=== PATIENT | female | born 1980 | race Caucasian/White ===

== ENCOUNTER 2017-01-15 11:59 | Emergency (ER) | payer BC ==
--- NOTE | 2017-01-15 12:19 | ER Document Report ---
ED Medical Screen (RME) - General Chief Complaint: Abdominal Cramping Stated Complaint: DIARRHEA CRAMPS BLOODY STOOL Time Seen by Provider: 01/15/17 12:18 Notes: Patient states she woke suddenly at 2:30 in the morning with severe abdominal cramping and diarrhea. She states over the last hour the stool is now pure blood whenever it comes out. She states the stool is still loose and liquid. She states the cramping is better but not gone. She denies any history of similar problems. She has never had any abdominal surgeries other than a fallopian tube procedure. She denies any significant chronic medical problems. TRAVEL OUTSIDE OF THE [place] IN LAST 30 DAYS: No - Related Data Allergies/Adverse Reactions: codeine [Codeine] Allergy (Severe, Verified 01/15/17 12:04) rash/hives hydroxyzine [Hydroxyzine] Allergy (Severe, Verified 01/15/17 12:04) Seizures, Hives Tetanus Vaccines and Toxoid [Tetanus] Allergy (Severe, Verified 01/15/17 12:04) Seizures acetaminophen [From Vicodin] Allergy (Intermediate, Verified 01/15/17 12:04) Hives hydrocodone bitartrate [From Vicodin] Allergy (Intermediate, Verified 01/15/17 12:04) Hives Past Medical History - Past Medical History Cardiac Medical History: Denies: Hx Coronary Artery Disease, Hx Heart Attack, Hx Hypertension Pulmonary Medical History: Denies: Hx Asthma, Hx Bronchitis, Hx COPD, Hx Pneumonia Neurological Medical History: Reports: Hx Seizures - Medication related. Denies : Hx Cerebrovascular Accident Musculoskeltal Medical History: Denies Hx Arthritis - Immunizations Hx Diphtheria, Pertussis, Tetanus Vaccination: No Physical Exam - Vital signs Vitals: Temp Pulse Resp BP Pulse Ox 98.4 F 92 14 131/88 H 100 01/15/17 12:04 01/15/17 12:04 01/15/17 12:04 01/15/17 12:04 01/15/17 12:04 Course - Vital Signs Vital signs: Temp Pulse Resp BP Pulse Ox 98.4 F 92 14 131/88 H 100 01/15/17 12:04 01/15/17 12:04 01/15/17 12:04 01/15/17 12:04 01/15/17 12:04
[2017-01-15 12:54] LABS: ABSOLUTE EOSINOPHILS # (AUTO) 0.1 10^3/uL (0.0-0.6); ABSOLUTE LYMPHOCYTES (AUTO) 1.9 10^3/uL (0.5-4.7); ABSOLUTE MONOCYTES (AUTO) 0.4 10^3/uL (0.1-1.4); BASOPHILS % (AUTO) 0.8 % (0-2); EOSINOPHILS % (AUTO) 1.2 % (0-6); HEMATOCRIT 39.3 % (36.0-47.0); HEMOGLOBIN 13.6 g/dL (12.0-15.5); HGB HCT DIFFERENCE 1.5; LYMPHOCYTES % (AUTO) 42.3 % (13-45); MEAN CORPUSCULAR HGB CONC 34.6 g/dL (32.0-36.0); MEAN CORPUSCULAR VOLUME 87 fl (80-97); MONOCYTES % (AUTO) 9.6 % (3-13); RED BLOOD COUNT 4.54 10^6/uL (3.72-5.28); SEGMENTED NEUTROPHILS % (AUTO) 46.1 % (42-78); WHITE BLOOD COUNT 4.4 10^3/uL (4.0-10.5)
[2017-01-15 12:56] LABS: APPEARANCE,URINE CLEAR; BILIRUBIN,URINE NEGATIVE (NEGATIVE); GLUCOSE, URINE NEGATIVE (NEGATIVE); KETONES,URINE NEGATIVE (NEGATIVE); LEUKOCYTE ESTERASE,URINE NEGATIVE (NEGATIVE); NITRITE,URINE NEGATIVE (NEGATIVE); PROTEIN,URINE NEGATIVE (NEGATIVE); URINE SPECIFIC GRAVITY 1.004; UROBILINOGEN,URINE NEGATIVE mg/dL (<2.0)
[2017-01-15 13:17] LABS: ALANINE AMINOTRANSFERASE 36 U/L (9-52); ALBUMIN 4.6 g/dL (3.5-5.0); ALKALINE PHOSPHATASE 64 U/L (38-126); ANION GAP 14 (5-19); ASPARTATE AMINO TRANSFERASE 25 U/L (14-36); BILIRUBIN,DIRECT 0.3 mg/dL (0.0-0.4); BILIRUBIN,TOTAL 0.7 mg/dL (0.2-1.3); BLOOD UREA NITROGEN 11 mg/dL (7-20); CALCIUM 9.8 mg/dL (8.4-10.2); CARBON DIOXIDE 27 mmol/L (22-30); CHLORIDE 104 mmol/L (98-107); CREATININE RESULT 0.78 mg/dL (0.52-1.25); GLUCOSE 98 mg/dL (75-110); LIPASE 90.9 U/L (23-300); POTASSIUM 3.7 mmol/L (3.6-5.0); SODIUM 144.7 mmol/L (137-145); TOTAL PROTEIN 7.9 g/dL (6.3-8.2)
--- NOTE | 2017-01-15 14:34 | ER Document Report ---
ED GI/ - General Chief Complaint: Abdominal Cramping Stated Complaint: DIARRHEA CRAMPS BLOODY STOOL Time Seen by Provider: 01/15/17 12:18 Notes: The patient is a 36-year-old female who presents with of lower abdominal cramping, nausea, vomiting and diarrhea. Initially the diarrhea was watery, but now it is bloody. She thinks she may have eaten undercooked chicken last night. She denies a history of IBD, recent travel, fevers, hematemesis, lightheadedness, urinary symptoms or flank pain. TRAVEL OUTSIDE OF THE [place] IN LAST 30 DAYS: No - Related Data Allergies/Adverse Reactions: codeine [Codeine] Allergy (Severe, Verified 01/15/17 12:04) rash/hives hydroxyzine [Hydroxyzine] Allergy (Severe, Verified 01/15/17 12:04) Seizures, Hives Tetanus Vaccines and Toxoid [Tetanus] Allergy (Severe, Verified 01/15/17 12:04) Seizures acetaminophen [From Vicodin] Allergy (Intermediate, Verified 01/15/17 12:04) Hives hydrocodone bitartrate [From Vicodin] Allergy (Intermediate, Verified 01/15/17 12:04) Hives Past Medical History - General Information source: Patient - Social History Smoking Status: Never Smoker Chew tobacco use (# tins/day): No Frequency of alcohol use: None Drug Abuse: None Family History: Reviewed & Not Pertinent Patient has suicidal ideation: No Patient has homicidal ideation: No - Past Medical History Cardiac Medical History: Denies: Hx Coronary Artery Disease, Hx Heart Attack, Hx Hypertension Pulmonary Medical History: Denies: Hx Asthma, Hx Bronchitis, Hx COPD, Hx Pneumonia Neurological Medical History: Reports: Hx Seizures - Medication related. Denies : Hx Cerebrovascular Accident Renal/ Medical History: Denies: Hx Peritoneal Dialysis Musculoskeltal Medical History: Denies Hx Arthritis Past Surgical History: Reports: Hx Oral Surgery - wisdom teeth - Immunizations Hx Diphtheria, Pertussis, Tetanus Vaccination: No Review of Systems - Review of Systems Notes: REVIEW OF SYSTEMS: CONSTITUTIONAL: -fevers, -chills EENT: -eye pain, -difficulty swallowing, -nasal congestion CARDIOVASCULAR:-chest pain, -syncope. RESPIRATORY: -cough, -SOB GASTROINTESTINAL: +abdominal cramping, +nausea, +vomiting, +bloody diarrhea GENITOURINARY: -dysuria, -hematuria MUSCULOSKELETAL: -back pain, -neck pain SKIN: -rash or skin lesions. HEMATOLOGIC: -easy bruising or bleeding. LYMPHATIC: -swollen, enlarged glands. NEUROLOGICAL: -altered mental status or loss of consciousness, -headache, - neurologic symptoms PSYCHIATRIC: -anxiety, -depression. ALL OTHER SYSTEMS REVIEWED AND NEGATIVE. Physical Exam - Vital signs Vitals: Temp Pulse Resp BP Pulse Ox 98.4 F 92 14 131/88 H 100 01/15/17 12:04 01/15/17 12:04 01/15/17 12:04 01/15/17 12:04 01/15/17 12:04 - Notes Notes: PHYSICAL EXAMINATION: GENERAL: Well-appearing, well-nourished and in no acute distress. HEAD: Atraumatic, normocephalic. EYES: Pupils equal round and reactive to light, extraocular movements intact, sclera anicteric, conjunctiva are normal. ENT: nares patent, oropharynx clear without exudates. Moist mucous membranes. NECK: Normal range of motion, supple without lymphadenopathy LUNGS: Breath sounds clear to auscultation bilaterally and equal. No wheezes rales or rhonchi. HEART: Regular rate and rhythm without murmurs ABDOMEN: Soft, nontender, normoactive bowel sounds. No guarding, no rebound. No masses appreciated. EXTREMITIES: Normal range of motion, no pitting or edema. No cyanosis. NEUROLOGICAL: Cranial nerves grossly intact. Normal speech, normal gait. Normal sensory and motor exams. PSYCH: Normal mood, normal affect. SKIN: Warm, Dry, normal turgor, no rashes or lesions noted. Course - Re-evaluation Re-evalutation: Patient appears well and she has no abdominal tenderness. Her hemoglobin is normal and vital signs are normal. She thinks she had undercooked chicken last night. Stool culture sent and will begin Cipro for possible foodborne cause for her diarrhea. There is no history of IBD. Explained that if she continues to have the symptoms to follow-up with GI for a colonoscopy. Given strict return precautions and she understands. - Vital Signs Vital signs: Temp Pulse Resp BP Pulse Ox 97.4 F 81 14 109/69 99 01/15/17 15:11 01/15/17 15:11 01/15/17 12:04 01/15/17 15:11 01/15/17 15:11 - Laboratory Result Diagrams: 01/15/17 12:50 01/15/17 12:50 Discharge - Discharge Clinical Impression: Bloody diarrhea Condition: Stable Disposition: HOME, SELF-CARE Additional Instructions: Take the full course of antibiotics as prescribed and stay hydrated by drinking plenty of fluids. If your symptoms worsen or you begin to feel lightheaded or dizzy, return immediately to the emergency room. Follow-up with the GI doctor for further evaluation and treatment. ABDOMINAL PAIN: There are many causes of abdominal pain. Pain can mean a serious problem requiring surgery (such as appendicitis). It can also be an innocent problem that goes away on its own (such as a viral infection). Often, time must pass to determine the cause of pain. The physician does not feel that hospitalization is necessary, at present. Things may change within the next 24 hours. Call the doctor or come back for re- examination if any problems occur, such as: (1) Pain that becomes more severe, steady, or becomes concentrated in one specific area. Also, pain that is more severe with movement or coughing. (2) Vomiting that persists or becomes more frequent. (3) Blood in the vomitus, urine, or bowel movements. Blood in the stool may have a tarry or black appearance. (4) Shaking chills or fever greater than 100 degrees F. (5) The abdomen becomes more distended or swollen. (6) Bowel movements cease. (7) Failure to improve as expected. COLITIS, NONSPECIFIC: Colitis is an inflammatory disease of the large intestine which affects the lining of the bowel. The cause is uncertain, though it is often caused by an infection. In some cases, the symptoms resolve and can return again in the future. Colitis is characterized by abdominal pain, often nausea and vomiting, and either diarrhea or difficulty with bowel movements. Sometimes blood will be present in the bowel movements. Fever is often present as well. Milder cases of colitis can be managed as an outpatient with medications for nausea and vomiting and pain, oral fluid therapy, and perhaps antibiotics, if a bacterial origin is suspected. Antidiarrhea medicine should usually be avoided in colitis. If you have increasing abdominal pain, repeated vomiting, fever, rectal bleeding, or worsening diarrhea, you should return for re-evaluation. ANTIBIOTIC THERAPY: You have been given an antibiotic prescription. It's important that you take all the medication, unless instructed otherwise by your physician. Failure to complete the entire course can result in relapse of your condition. Common side effects of antibiotics include nausea, intestinal cramping, or diarrhea. Women may develop vaginal yeast infections, and babies can get yeast (thrush) in the mouth following the use of antibiotics. Contact your physician if you develop significant side effects from this medication. Allergy to this antibiotic can result in hives, wheezing, faintness, or itching. If symptoms of allergy occur, stop the medication and call the doctor. CIPROFLOXACIN: You have been given an antibacterial agent, ciprofloxacin (Cipro). This medicine is not related to the penicillins, sulfas, cephalosporins, or tetracyclines. It is often given to patients who are allergic to these drugs. It has been chosen for you either because other drugs are not appropriate, or because of the nature of your problem. Cipro should not be taken with antacids, as these can decrease its effectiveness. It can be taken without regard to meals. CIPRO SHOULD NOT BE TAKEN BY CHILDREN, NURSING WOMEN, OR WOMEN. Although Cipro is usually well-tolerated, common side effects can include nausea and diarrhea. Contact your doctor if you experience any unusual symptoms while on this medication, such as joint pain or swelling, shortness of breath, wheezing, faintness, or hives. FOLLOW-UP CARE: If you have been referred to a physician for follow-up care, call the physician s office for an appointment as you were instructed or within the next two days. If you experience worsening or a significant change in your symptoms, notify the physician immediately or return to the Emergency Department at any time for re-evaluation. Prescriptions: Ciprofloxacin HCl [Cipro 500 mg Tablet] 500 mg PO BID #10 tablet Forms: Return to School, Return to Work Referrals: SHY ALBARRAN MD [ACTIVE STAFF] - Follow up as needed
[2017-01-15 15:12] VITALS: BP 109/69
== END 2017-01-15 15:12 | disposition home or self-care (01) ==
LOC: ER 11:59
DX: K92.1 Melena (principal); R19.7 Diarrhea, unspecified; R10.30 Lower abdominal pain, unspecified; R11.2 Nausea with vomiting, unspecified; Z88.5 Allergy status to narcotic agent; Z88.8 Allergy status to other drugs, medicaments and biological substances; Z88.7 Allergy status to serum and vaccine
CPT/HCPCS: 36415; 80053; 81001; 81025; 82272; 83690; 85025; 87045; 87205; 99284

== ENCOUNTER 2018-01-26 05:10 | Inpatient (IN) | payer BC ==
[2018-01-26] MEDS ORDERED: NORMAL SALINE 1000 ML 1,000 ML IV ONE ×4 (06:16→11:13)
[2018-01-26] MEDS ORDERED: ONDANSETRON HCL INJ/PF 4 MG/2 ML SDV IV ONE (06:21)
[2018-01-26] MEDS ORDERED: KETOROLAC TROMETHAMINE INJ/PF 30 MG/1 ML SDV IV ONE (06:22)
[2018-01-26 06:28] LABS: APPEARANCE,URINE CLOUDY; BILIRUBIN,URINE NEGATIVE (NEGATIVE); COLOR,URINE AMBER; GLUCOSE, URINE NEGATIVE (NEGATIVE); KETONES,URINE 20 mg/dL (NEGATIVE); LEUKOCYTE ESTERASE,URINE TRACE (NEGATIVE); NITRITE,URINE NEGATIVE (NEGATIVE); PROTEIN,URINE 100 mg/dL (NEGATIVE); URINE SPECIFIC GRAVITY 1.023; UROBILINOGEN,URINE NEGATIVE mg/dL (<2.0)
[2018-01-26 06:42] LABS: ALANINE AMINOTRANSFERASE 17 U/L (9-52); ALKALINE PHOSPHATASE 71 U/L (38-126); ANION GAP 16 (5-19); ASPARTATE AMINO TRANSFERASE 19 U/L (14-36); BILIRUBIN,DIRECT 0.8 mg/dL (0.0-0.4); BILIRUBIN,TOTAL 1.8 mg/dL (0.2-1.3); BLOOD UREA NITROGEN 13 mg/dL (7-20); CALCIUM 9.3 mg/dL (8.4-10.2); CARBON DIOXIDE 19 mmol/L (22-30); CHLORIDE 103 mmol/L (98-107); GLUCOSE 124 mg/dL (75-110); LIPASE 39.5 U/L (23-300); POTASSIUM 4.2 mmol/L (3.6-5.0); TOTAL PROTEIN 7.3 g/dL (6.3-8.2)
[2018-01-26 06:47] LABS: ABSOLUTE LYMPHOCYTES (AUTO) 1.3 10^3/uL (0.5-4.7); ABSOLUTE MONOCYTES (AUTO) 1.2 10^3/uL (0.1-1.4); ABSOLUTE NEUT (AUTO) 3.6 10^3/uL (1.7-8.2); BASOPHILS % (AUTO) 0.3 % (0-2); EOSINOPHILS % (AUTO) 0.6 % (0-6); HEMATOCRIT 38.8 % (36.0-47.0); HEMOGLOBIN 13.7 g/dL (12.0-15.5); LYMPHOCYTES % (AUTO) 20.9 % (13-45); MEAN CORPUSCULAR HGB CONC 35.2 g/dL (32.0-36.0); MEAN CORPUSCULAR VOLUME 85 fl (80-97); MONOCYTES % (AUTO) 19.3 % (3-13); PLATELET COUNT 334 10^3/uL (150-450); RED BLOOD COUNT 4.55 10^6/uL (3.72-5.28); SEGMENTED NEUTROPHILS % (AUTO) 58.9 % (42-78); TOTAL CELLS COUNTED % (AUTO) 100 %
--- NOTE | 2018-01-26 07:10 | ER Document Report ---
ED General - General Chief Complaint: Abdominal Pain Stated Complaint: ABDOMINAL PAIN Time Seen by Provider: 01/26/18 06:15 TRAVEL OUTSIDE OF THE [place] IN LAST 30 DAYS: No - HPI Onset: Other - Last night Onset/Duration: Sudden, Intermittent Quality of pain: Sharp Severity: Moderate Associated symptoms: Nausea, Vomiting Exacerbated by: Denies Relieved by: Denies Similar symptoms previously: No Notes: Patient is a 37-year-old female that presents to the emergency department for chief complaint of abdominal pain nausea vomiting and diarrhea. Patient began having nausea vomiting and diarrhea 3 days ago. After taking Phenergan and Imodium her symptoms were improving until midnight last night when she started having abdominal pain. She reports a sharp left-sided abdominal pain. Pain is intermittent. She denies any aggravating or relieving factors. Currently she states the pain is improving from last night. She denies fevers or chills. She denies dysuria, hematuria, cough, congestion, chest pain and shortness of breath. Past Medical History: Negative Past Surgical History: Negative Social History: Denies drugs alcohol and tobacco Family History: Reviewed and noncontributory for presenting illness Allergies: Reviewed, see documented allergy list. REVIEW OF SYSTEMS: CONSTITUTIONAL : No fever No chills No diaphoresis No recent illness EENT: No vision changes No congestion No sore throat CARDIOVASCULAR: No chest pain No palpitations RESPIRATORY: No shortness of breath No cough No difficulty breathing GASTROINTESTINAL: abdominal pain nausea vomiting diarrhea GENITOURINARY: No dysuria No hematuria No difficulty urinating MUSCULOSKELETAL: No back pain No leg pain No arm pain SKIN: No rashes No lesions LYMPHATIC: No swollen, enlarged glands. NEUROLOGICAL: No lightheadedness No headache No weakness No paresthesias PSYCHIATRIC: No anxiety No depression PHYSICAL EXAMINATION: Vital signs reviewed, nursing noted reviewed. GENERAL: Well-appearing, well-nourished and in no acute distress. HEAD: Atraumatic, normocephalic. EYES: Eyes appear normal, extraocular movements intact, sclera anicteric, conjunctiva are normal. ENT: nares patent, oropharynx clear without exudates. Dry mucous membranes. NECK: Normal range of motion, supple without lymphadenopathy LUNGS: Breath sounds clear to auscultation bilaterally and equal. No wheezes rales or rhonchi. HEART: Tachycardic rate and regular rhythm without murmurs ABDOMEN: Soft, diffusely tender worse in the left lower and left upper quadrant , normoactive bowel sounds. No rebound, guarding, or rigidity. No masses appreciated. EXTREMITIES: Nontender, good range of motion, no pitting or edema. NEUROLOGICAL: No focal neurological deficits. Moves all extremities spontaneously Motor and sensory grossly intact on exam. PSYCH: Normal mood, normal affect. SKIN: Warm, Dry, normal turgor, no rashes or lesions noted on exposed skin - Related Data Allergies/Adverse Reactions: codeine [Codeine] Allergy (Severe, Verified 01/26/18 05:11) rash/hives hydroxyzine [Hydroxyzine] Allergy (Severe, Verified 01/26/18 05:11) Seizures, Hives Tetanus Vaccines and Toxoid [Tetanus] Allergy (Severe, Verified 01/26/18 05:11) Seizures acetaminophen [From Vicodin] Allergy (Intermediate, Verified 01/26/18 05:11) Hives hydrocodone bitartrate [From Vicodin] Allergy (Intermediate, Verified 01/26/18 05:11) Hives Past Medical History - Social History Smoking Status: Never Smoker Frequency of alcohol use: None Drug Abuse: None Family History: Reviewed & Not Pertinent Patient has suicidal ideation: No Patient has homicidal ideation: No - Past Medical History Cardiac Medical History: Denies: Hx Coronary Artery Disease, Hx Heart Attack, Hx Hypertension Pulmonary Medical History: Denies: Hx Asthma, Hx Bronchitis, Hx COPD, Hx Pneumonia Neurological Medical History: Reports: Hx Seizures - Medication related. Denies : Hx Cerebrovascular Accident Renal/ Medical History: Denies: Hx Peritoneal Dialysis Musculoskeletal Medical History: Denies Hx Arthritis Past Surgical History: Reports: Hx Oral Surgery - wisdom teeth - Immunizations Hx Diphtheria, Pertussis, Tetanus Vaccination: No Physical Exam - Vital signs Vitals: Temp Pulse Resp BP Pulse Ox 97.5 F 131 H 20 105/77 99 01/26/18 05:13 01/26/18 05:13 01/26/18 05:13 01/26/18 05:13 01/26/18 05:13 Course - Re-evaluation Re-evalutation: 01/26/18 07:10 Vitals reviewed. Nursing notes reviewed. Patient was tachycardic at presentation and appeared dehydrated. She was started on IV hydration, antiemetics and pain medication for symptomatic management. 01/26/18 11:17 On reevaluation patient's abdominal pain has significantly improved. Her blood pressure has begun to decline and she has become more tachycardic since presentation despite aggressive fluid hydration. Patient has currently received 3 L IV normal saline and has a blood pressure of 85/58 with a heart rate of 103. Her lactic acid is normal and she has no leukocytosis. Her CT scan shows a left-sided colitis that is inflammatory versus ischemic. With a normal lactic acid I do not highly suspect ischemic colitis. I did discuss her care with Dr. Linn who will evaluate the patient. Case was also discussed with Dr. Smith who accepted admission. Patient will be admitted to the [facility] for close monitoring. She is stable at time of admission. Laboratory 01/26/18 01/26/18 01/26/18 06:11 06:11 06:11 WBC 6.0 RBC 4.55 Hgb 13.7 Hct 38.8 MCV 85 MCH 30.0 MCHC 35.2 RDW 13.0 Plt Count 334 Seg Neutrophils % 58.9 Lymphocytes % 20.9 Monocytes % 19.3 H Eosinophils % 0.6 Basophils % 0.3 Absolute Neutrophils 3.6 Absolute Lymphocytes 1.3 Absolute Monocytes 1.2 Absolute Eosinophils 0.0 Absolute Basophils 0.0 Sodium 138.0 Potassium 4.2 Chloride 103 Carbon Dioxide 19 L Anion Gap 16 BUN 13 Creatinine 0.62 Est GFR ( Amer) > 60 Est GFR (Non-Af Amer) > 60 Glucose 124 H Lactic Acid Calcium 9.3 Total Bilirubin 1.8 H Direct Bilirubin 0.8 H Neonat Total Bilirubin Not Reportable Neonat Direct Bilirubin Not Reportable Neonat Indirect Bili Not Reportable AST 19 ALT 17 Alkaline Phosphatase 71 Total Protein 7.3 Albumin 4.0 Lipase 39.5 Urine Color MAIKEL Urine Appearance CLOUDY Urine pH 5.0 Ur Specific [place] 1.023 Urine Protein 100 H Urine Glucose (UA) NEGATIVE Urine Ketones 20 H Urine Blood MODERATE H Urine Nitrite NEGATIVE Urine Bilirubin NEGATIVE Urine Urobilinogen NEGATIVE Ur Leukocyte Esterase TRACE H Urine WBC (Auto) 3 Urine RBC (Auto) 6 Urine Bacteria (Auto) 2+ Squamous Epi Cells Auto 6 Urine Mucus (Auto) FEW Urine Ascorbic Acid NEGATIVE Urine HCG, Qual NEGATIVE 01/26/18 10:20 WBC RBC Hgb Hct MCV MCH MCHC RDW Plt Count Seg Neutrophils % Lymphocytes % Monocytes % Eosinophils % Basophils % Absolute Neutrophils Absolute Lymphocytes Absolute Monocytes Absolute Eosinophils Absolute Basophils Sodium Potassium Chloride Carbon Dioxide Anion Gap BUN Creatinine Est GFR ( Amer) Est GFR (Non-Af Amer) Glucose Lactic Acid 1.0 Calcium Total Bilirubin Direct Bilirubin Neonat Total Bilirubin Neonat Direct Bilirubin Neonat Indirect Bili AST ALT Alkaline Phosphatase Total Protein Albumin Lipase Urine Color Urine Appearance Urine pH Ur Specific [place] Urine Protein Urine Glucose (UA) Urine Ketones Urine Blood Urine Nitrite Urine Bilirubin Urine Urobilinogen Ur Leukocyte Esterase Urine WBC (Auto) Urine RBC (Auto) Urine Bacteria (Auto) Squamous Epi Cells Auto Urine Mucus (Auto) Urine Ascorbic Acid Urine HCG, Qual Abdomen/Pelvis CT 01/26/18 07:06 IMPRESSION: Splenic flexure, descending, and sigmoid colitis, infectious or inflammatory bowel disease favored over ischemic. - Vital Signs Vital signs: Temp Pulse Resp BP Pulse Ox 97.5 F 131 H 15 85/58 L 98 01/26/18 05:13 01/26/18 05:13 01/26/18 11:01 01/26/18 11:01 01/26/18 11:01 - Laboratory Result Diagrams: 01/26/18 06:11 01/26/18 06:11 Laboratory results interpreted by me: 01/26/18 01/26/18 01/26/18 06:11 06:11 06:11 Monocytes % 19.3 H Carbon Dioxide 19 L Glucose 124 H Total Bilirubin 1.8 H Direct Bilirubin 0.8 H Urine Protein 100 H Urine Ketones 20 H Urine Blood MODERATE H Ur Leukocyte Esterase TRACE H Critical Care Note - Critical Care Note Total time excluding time spent on procedures (mins): 35 Comments: Septic shock. Hemodynamic management. Discussion with medical program specialist. Repeat re-evaluations. Potential for cardiovascular decompensation. Discharge - Discharge Clinical Impression: Colitis, Septic shock Condition: Stable Disposition: ADMITTED INPATIENT Admitting Provider: Hospitalist Unit Admitted: [facility]
--- NOTE | 2018-01-26 09:36 | RADIOLOGY REPORT (SQ) ---
EXAM DESCRIPTION: CT ABD/PELVIS WITH IV ONLY COMPLETED DATE/TIME: 01/26/2018 8:58 am REASON FOR STUDY: LUQ/LLQ pain COMPARISON: None. TECHNIQUE: CT scan of the abdomen and pelvis performed using helical scanning technique with dynamic intravenous contrast injection. No oral contrast. Images reviewed with lung, soft tissue, and bone windows. Reconstructed coronal and sagittal MPR images reviewed. Delayed images for evaluation of the urinary system also acquired. All images stored on PACS. All CT scanners at this facility use dose modulation, iterative reconstruction, and/or weight based d osing when appropriate to reduce radiation dose to as low as reasonably achievable (ALARA). [facility]: Dose Right [facility]: CareDose [facility]: Dose Right [facility]: Teradose 4D [facility]: ColdWatt CONTRAST TYPE AND DOSE: contrast/concentration: Isovue 350.00 mg/ml; Total Contrast Delivered: 69.0 ml; Total Saline Delivered: 65.0 ml RENAL FUNCTION: GFR > 60. RADIATION DOSE: CT Rad equipment meets quality standard of care and radiation dose reduction techniq ues were employed. CTDIvol: 3.8 - 4.5 mGy. DLP: 640 mGy-cm.. LIMITATIONS: None. FINDINGS: From the splenic flexure colon throughout the descending and sigmoid colon, there is abnor mal diffuse wall thickening, and mild inflammatory change in the surrounding pericolic fat. This is worrisome for colitis, infectious or inflammatory is favored over ischemic, given normal enhancement of the mesenteric vessels. No free intraperitoneal air or fluid. No CT signs of bowel obstruction. No intra-abdominal or pelvi c abscess. LOWER CHEST: No significant findings. No nodules or infiltrates. LIVER: Normal size. No masses. No dilated ducts. SPLEEN: Normal size. No focal lesions. PANCREAS: No masses. No significant calcifications. No adjacent inflammation or peripancreatic fluid collections. Pancreatic duct not dilated. GALLBLADDER: No identified stones by CT criteria. No inflammatory changes to suggest cholecystitis. ADRENAL GLANDS: No significant masses or asymmetry. RIGHT KIDNEY AND URETER: No solid masses. No significant calcifications. No hydronephrosis or hyd roureter. LEFT KIDNEY AND URETER: No solid masses. No significant calcifications. No hydronephrosis or hydr oureter. AORTA AND VESSELS: No aneurysm. No dissection. Renal arteries, SMA, celiac without stenosis. RETROPERITONEUM: No retroperitoneal adenopathy, hemorrhage or masses. BOWEL AND PERITONEAL CAVITY: As above APPENDIX: Normal. PELVIS: No mass. No free fluid. Normal bladder. Normal size female pelvic organs. Bilateral Essure tubal occlusion devices are present ABDOMINAL WALL: No masses. No hernias. BONES: No significant or acute findings. OTHER: No other significant finding. IMPRESSION: Splenic flexure, descending, and sigmoid colitis, infectious or inflammatory bowel disea se favored over ischemic. TECHNICAL DOCUMENTATION: JOB ID: [id number] Quality ID # [id number]: Final reports with documentation of one or more dose reduction techniques (e.g., Au tomated exposure control, adjustment of the mA and/or kV according to patient size, use of iterative reconstruction technique) 2010 [employer]- All Rights Reserved Reading location - IP/workstation name: [email or web address]
[2018-01-26] MEDS ORDERED: LEVOFLOXACIN 750 MG/D5W RTU 750 MG/150 ML RTUPB IV ONE (11:10)
[2018-01-26] MEDS ORDERED: FENTANYL CITRATE INJ/PF 100 MCG/2 ML AMPUL IV ONE (11:20)
[2018-01-26] MEDS ORDERED: METRONIDAZOLE 500 MG/NS RTU 500 MG/100 ML RTUPB IV ONE (11:48)
[2018-01-26] MEDS ORDERED: NORMAL SALINE 1000 ML 1,000 ML IV PRN (11:51)
[2018-01-26] MEDS ORDERED: IBUPROFEN 400 MG TABLET PO PRN (11:58)
--- NOTE | 2018-01-26 12:02 | PDOC H&P ---
History of Present Illness Admission Date/PCP: 01/26/18 11:25 GEMA SON NP History of Present Illness: NANI DONOHUE is a 37 year old female no significant past medical history presenting to ED complaining of abdominal pain. Said that the day after Thanks[place] she started having severe nausea and vomiting associated with fever and chills. Nausea vomiting resolved however this morning she woke up with severe left-sided abdominal pain. She also had p.o. intolerance and noticed that her urine output was decreasing and urine was turning dark. She said that the cause of her nausea vomiting may have been the food that she had at the [place]. Denies any sick contacts. She denies any history of chronic persistent diarrhea, weight loss, melena, hematochezia skin changes or any rashes or any weight changes. Denies having any personal or family history of inflammatory bowel disease Past Medical History Cardiac Medical History: Denies: Coronary Artery Disease, Myocardial Infarction, Hypertension Pulmonary Medical History: Denies: Asthma, Bronchitis, Chronic Obstructive Pulmonary Disease (COPD), Pneumonia Neurological Medical History: Reports: Seizures - Medication related Musculoskeltal Medical History: Denies: Arthritis Hematology: Denies: Anemia Social History Smoking Status: Never Smoker Family History Family History: Reviewed & Not Pertinent Parental Family History Reviewed: Yes Children Family History Reviewed: Yes Sibling(s) Family History Reviewed.: Yes Medication/Allergy Home Medications: No Home Medications 01/26/18 Allergies/Adverse Reactions: codeine [Codeine] Allergy (Severe, Verified 01/26/18 05:11) rash/hives hydroxyzine [Hydroxyzine] Allergy (Severe, Verified 01/26/18 05:11) Seizures, Hives Tetanus Vaccines and Toxoid [Tetanus] Allergy (Severe, Verified 01/26/18 05:11) Seizures acetaminophen [From Vicodin] Allergy (Intermediate, Verified 01/26/18 05:11) Hives hydrocodone bitartrate [From Vicodin] Allergy (Intermediate, Verified 01/26/18 05:11) Hives Review of Systems Constitutional: PRESENT: anorexia, fever(s), weakness Eyes: ABSENT: as per HPI, visual disturbances, other Nose, Mouth, and Throat: ABSENT: as per HPI, headache(s), mouth pain, sore throat, vertigo, other Cardiovascular: PRESENT: as per HPI. ABSENT: chest pain, dyspnea on exertion, edema, orthropnea, palpitations, other Gastrointestinal: PRESENT: as per HPI Genitourinary: ABSENT: dysuria, hematuria Musculoskeletal: ABSENT: joint swelling Neurological: ABSENT: abnormal gait, abnormal movements, abnormal speech, confusion, convulsions, dizziness, focal weakness, frequent falls, lack of coordination, memory loss, numbness, paresthesias, restless legs, syncope, tingling, tremor(s), vertigo, weakness, other Endocrine: PRESENT: as per HPI. ABSENT: cold intolerance, flushing, heat intolerance, menstrual abnormalities, polydipsia, polyphagia, polyuria, other Hematologic/Lymphatic: ABSENT: easy bleeding, easy bruising Physical Exam Vital Signs: Temp Pulse Resp BP Pulse Ox 98.8 F 131 H 15 85/58 L 98 01/26/18 11:30 01/26/18 05:13 01/26/18 11:01 01/26/18 11:01 01/26/18 11:01 Intake & Output 01/25/18 01/26/18 01/27/18 06:59 06:59 06:59 Output Total 300 Balance -300 General appearance: PRESENT: no acute distress, well-developed, well-nourished Neck exam: ABSENT: carotid bruit, JVD, lymphadenopathy, thyromegaly Respiratory exam: PRESENT: clear to auscultation robert. ABSENT: rales, rhonchi, wheezes Cardiovascular exam: PRESENT: RRR. ABSENT: diastolic murmur, rubs, systolic murmur GI/Abdominal exam: PRESENT: guarding, hypoactive bowel sounds, soft, tenderness. ABSENT: distended, mass, organolmegaly, rebound Extremities exam: PRESENT: full ROM. ABSENT: calf tenderness, clubbing, pedal edema Neurological exam: PRESENT: alert, awake, oriented to person, oriented to place , oriented to time, oriented to situation, CN II-XII grossly intact. ABSENT: motor sensory deficit Skin exam: PRESENT: dry, intact, warm. ABSENT: cyanosis, rash Results Impressions: Abdomen/Pelvis CT 01/26/18 07:06 IMPRESSION: Splenic flexure, descending, and sigmoid colitis, infectious or inflammatory bowel disease favored over ischemic. Assessment & Plan - Diagnosis (1) Colitis Is this a current diagnosis for this admission?: Yes Plan: Likely inflammatory. Empiric antibiotics. Volume resuscitation. Electrolyte repletion. Surgery was consulted no intervention needed at this time. (2) Nausea & vomiting Is this a current diagnosis for this admission?: Yes Plan: Due to problem #1. Continue antiemetics. Continue treatment for underlying cause. (3) Volume depletion Is this a current diagnosis for this admission?: Yes Plan: Due to problem #1. Aggressive volume resuscitation guided by volume status and vitals. (4) Septic shock Is this a current diagnosis for this admission?: Yes Plan: Likely due to colitis. Volume resuscitation guided by volume status and vitals. IMCU admission. Broad-spectrum antibiotics. Stool workup for infectious causes. Blood culture.
--- NOTE | 2018-01-26 12:08 | PDOC CONSULTATION ---
Consultation Consult Date: 01/26/18 Attending physician:: TRAN BUNDY Consult reason:: Left-sided colitis History of Present Illness Admission Date/PCP: 01/26/18 11:25 GEMA SON NP Patient complains of: Abdominal pain History of Present Illness: NANI DONOHUE is a 37 year old female Presents emergency department complaining of 3-day history of crampy abdominal pain primarily in the suprapubic area and left side, associated with nausea, anorexia, multiple episodes of diarrhea. Symptoms started , progressed to [place] Saturday but then stabilized somewhat yesterday. Because of persisting cramping left-sided she was seen in the emergency department where she was found to have septic shock with tachycardia and hypotension. She was fluid resuscitated. She reports urine output decreased and very dark. She had a CT scan of the abdomen and pelvis without oral contrast which showed findings consistent with colitis. She was admitted to the medicine service, surgery consulting. Patient denies history of colitis, GI problems, or or family contacts with gastrointestinal problems. While in the emergency department she received 3 and half liters of saline, and eventually heart rate and increase in blood pressure. Remained neurologically intact Past Medical History Past Medical History: Allergies; Cardiac Medical History: Denies: Coronary Artery Disease, Myocardial Infarction, Hypertension Pulmonary Medical History: Denies: Asthma, Bronchitis, Chronic Obstructive Pulmonary Disease (COPD), Pneumonia Neurological Medical History: Reports: Seizures - Medication related Musculoskeltal Medical History: Denies: Arthritis Hematology: Denies: Anemia Past Surgical History Past Surgical History: Insertion of esure Past Surgical History: Reports: None Social History Smoking Status: Never Smoker Family History Family History: Reviewed & Not Pertinent Parental Family History Reviewed: Yes Children Family History Reviewed: Yes Sibling(s) Family History Reviewed.: Yes Medication/Allergy Home Medications: No Home Medications 01/26/18 Allergies/Adverse Reactions: codeine [Codeine] Allergy (Severe, Verified 01/26/18 05:11) rash/hives hydroxyzine [Hydroxyzine] Allergy (Severe, Verified 01/26/18 05:11) Seizures, Hives Tetanus Vaccines and Toxoid [Tetanus] Allergy (Severe, Verified 01/26/18 05:11) Seizures acetaminophen [From Vicodin] Allergy (Intermediate, Verified 01/26/18 05:11) Hives hydrocodone bitartrate [From Vicodin] Allergy (Intermediate, Verified 01/26/18 05:11) Hives Review of Systems Constitutional: PRESENT: as per HPI Eyes: ABSENT: visual disturbances Ears: ABSENT: as per HPI, hearing changes, other Cardiovascular: ABSENT: chest pain, dyspnea on exertion, edema, orthropnea, palpitations Respiratory: ABSENT: cough, hemoptysis Gastrointestinal: PRESENT: as per HPI Neurological: PRESENT: as per HPI Psychiatric: ABSENT: anxiety, depression, homidical ideation, suicidal ideation Physical Exam Vital Signs: Temp Pulse Resp BP Pulse Ox 98.8 F 131 H 15 85/58 L 98 01/26/18 11:30 01/26/18 05:13 01/26/18 11:01 01/26/18 11:01 01/26/18 11:01 Intake & Output 01/25/18 01/26/18 01/27/18 06:59 06:59 06:59 Output Total 300 Balance -300 General appearance: PRESENT: no acute distress Head exam: PRESENT: normocephalic Eye exam: PRESENT: EOMI Mouth exam: PRESENT: dry mucosa Neck exam: PRESENT: full ROM Respiratory exam: PRESENT: clear to auscultation robert Cardiovascular exam: PRESENT: RRR Pulses: PRESENT: normal carotid pulses GI/Abdominal exam: PRESENT: other - Tender left lower quadrant and suprapubic area. No rigidity no organomegaly. No hernias. Psychiatric exam: PRESENT: anxious, appropriate affect Skin exam: PRESENT: dry Results Impressions: Abdomen/Pelvis CT 01/26/18 07:06 IMPRESSION: Splenic flexure, descending, and sigmoid colitis, infectious or inflammatory bowel disease favored over ischemic. Assessment & Plan - Diagnosis (1) Colitis Is this a current diagnosis for this admission?: Yes Plan: Impression: Septic shock likely due to infectious colitis, clinically improving with fluid resuscitation. Evidence of peritonitis on physical examination. CT scan fairly unremarkable; study limited due to absence of oral contrast Recommendations: 1. Continue fluid resuscitation plus minus IV antibiotics graft 2. No indication for surgical intervention at this time. Will follow along with you (2) Septic shock Is this a current diagnosis for this admission?: Yes (3) Volume depletion Is this a current diagnosis for this admission?: Yes - Time Time Spent: 30 to 50 Minutes Smoking Cessation Education: 3 to 10 minutes Medications reviewed and adjusted accordingly: Yes Anticipated discharge: Home - Inpatient Certification Based on my medical assessment, after consideration of the patient's comorbidities, presenting symptoms, or acuity I expect that the services needed warrant INPATIENT care.: Yes I certify that my determination is in accordance with my understanding of Medicare's requirements for reasonable and necessary INPATIENT services [42 CFR 412.3e].: Yes Medical Necessity: Need For IV Fluids, Need for IV Antibiotics
[2018-01-26] MEDS ORDERED: METRONIDAZOLE 500 MG/NS RTU 250 MG in CONTAINER,EMPTY 1 EACH IV SCH (14:00)
[2018-01-26] MEDS: ONDANSETRON HCL INJ/PF 4 MG/2 ML SDV IV PRN (14:35)
[2018-01-26] MEDS: LANSOPRAZOLE 30 MG TAB.RAP.DR PO SCH (16:47)
[2018-01-26] MEDS ORDERED: ACETAMINOPHEN 325 MG TABLET PO PRN (19:50)
[2018-01-26] MEDS: NORMAL SALINE 1000 ML 1,000 ML IV PRN (20:26)
[2018-01-26] MEDS: METRONIDAZOLE RTU 500 MG/NS 100 ML IV SCH (21:53)
[2018-01-26] MEDS ORDERED: TEMAZEPAM 7.5 MG CAPSULE PO SCH (22:00)
[2018-01-27] MEDS: NORMAL SALINE 1000 ML 1,000 ML IV PRN ×2 (02:48→22:13)
[2018-01-27 05:28] LABS: ABSOLUTE LYMPHOCYTES (AUTO) 0.8 10^3/uL (0.5-4.7); ABSOLUTE MONOCYTES (AUTO) 0.5 10^3/uL (0.1-1.4); ABSOLUTE NEUT (AUTO) 2.1 10^3/uL (1.7-8.2); BASOPHILS % (AUTO) 0.3 % (0-2); EOSINOPHILS % (AUTO) 0.7 % (0-6); HEMATOCRIT 28.7 % (36.0-47.0); LYMPHOCYTES % (AUTO) 24.3 % (13-45); MEAN CORPUSCULAR HEMOGLOBIN 30.1 pg (27.0-33.4); MEAN CORPUSCULAR HGB CONC 34.7 g/dL (32.0-36.0); MEAN CORPUSCULAR VOLUME 87 fl (80-97); MONOCYTES % (AUTO) 15.7 % (3-13); PLATELET COUNT 177 10^3/uL (150-450); RED BLOOD COUNT 3.31 10^6/uL (3.72-5.28); RED CELL DISTRIBUTION WIDTH 13.2 % (11.5-14.0); TOTAL CELLS COUNTED % (AUTO) 100 %; WHITE BLOOD COUNT 3.5 10^3/uL (4.0-10.5)
[2018-01-27 05:29] LABS: HEMOGLOBIN 9.9 g/dL (12.0-15.5)
[2018-01-27 05:47] LABS: ALANINE AMINOTRANSFERASE 15 U/L (9-52); ALBUMIN 2.4 g/dL (3.5-5.0); ALKALINE PHOSPHATASE 51 U/L (38-126); ANION GAP 12 (5-19); ASPARTATE AMINO TRANSFERASE 9 U/L (14-36); BILIRUBIN,DIRECT 0.4 mg/dL (0.0-0.4); BILIRUBIN,TOTAL 0.6 mg/dL (0.2-1.3); BLOOD UREA NITROGEN 6 mg/dL (7-20); CALCIUM 7.2 mg/dL (8.4-10.2); CARBON DIOXIDE 18 mmol/L (22-30); CHLORIDE 112 mmol/L (98-107); GLUCOSE 86 mg/dL (75-110); POTASSIUM 3.5 mmol/L (3.6-5.0); SODIUM 141.7 mmol/L (137-145); TOTAL PROTEIN 4.9 g/dL (6.3-8.2)
[2018-01-27] MEDS: LANSOPRAZOLE 30 MG TAB.RAP.DR PO SCH ×2 (06:16→16:29)
[2018-01-27] MEDS: METRONIDAZOLE RTU 500 MG/NS 100 ML IV SCH ×3 (06:16→22:13)
[2018-01-27] MEDS ORDERED: MAGNESIUM SULFATE/D5W 1 GM/100 ML RTUPB IV ONE (07:49)
[2018-01-27] MEDS ORDERED: CALCIUM GLUCONATE 1000 MG/10 ML INJ IV ONE (08:15)
[2018-01-27] MEDS ORDERED: POTASSIUM CHLORIDE 20 MEQ/15 ML UDCUP PO ONE (08:15)
--- NOTE | 2018-01-27 09:50 | PDOC PROGRESS REPORT ---
Subjective Progress Note for:: 01/27/18 Subjective:: Feels a lot better. No abdominal pains. Small amount of diarrhea this am. Tolerated small amount of regular diet. Reason For Visit: COLITIS,SIRS Physical Exam Vital Signs: Temp Pulse Resp BP Pulse Ox 99.0 F 66 20 90/50 L 98 01/27/18 03:55 01/27/18 07:00 01/27/18 03:55 01/27/18 04:00 01/27/18 03:55 Intake & Output 01/26/18 01/27/18 01/28/18 06:59 06:59 06:59 Intake Total 4040 Output Total 1200 Balance 2840 Weight 67 kg Exam: abd is soft and non tender Results Laboratory Results: 01/27/18 04:58 01/27/18 04:58 01/26/18 01/27/18 01/27/18 12:28 02:52 02:52 WBC RBC Hgb Hct MCV MCH MCHC RDW Plt Count Seg Neutrophils % Lymphocytes % Monocytes % Eosinophils % Basophils % Absolute Neutrophils Absolute Lymphocytes Absolute Monocytes Absolute Eosinophils Absolute Basophils Sodium Potassium Chloride Carbon Dioxide Anion Gap BUN Creatinine Est GFR ( Amer) Est GFR (Non-Af Amer) Glucose Calcium Magnesium Total Bilirubin AST ALT Alkaline Phosphatase C-Reactive Protein 171.0 H Total Protein Albumin Stool Occult Blood POSITIVE Stool for White Cells MANY H 01/27/18 01/27/18 04:58 04:58 WBC 3.5 L RBC 3.31 L Hgb 9.9 L D Hct 28.7 L MCV 87 MCH 30.1 MCHC 34.7 RDW 13.2 Plt Count 177 Seg Neutrophils % 59.0 Lymphocytes % 24.3 Monocytes % 15.7 H Eosinophils % 0.7 Basophils % 0.3 Absolute Neutrophils 2.1 Absolute Lymphocytes 0.8 Absolute Monocytes 0.5 Absolute Eosinophils 0.0 Absolute Basophils 0.0 Sodium 141.7 Potassium 3.5 L Chloride 112 H Carbon Dioxide 18 L Anion Gap 12 BUN 6 L Creatinine 0.58 Est GFR ( Amer) > 60 Est GFR (Non-Af Amer) > 60 Glucose 86 Calcium 7.2 L Magnesium 1.8 Total Bilirubin 0.6 AST 9 L ALT 15 Alkaline Phosphatase 51 C-Reactive Protein Total Protein 4.9 L Albumin 2.4 L Stool Occult Blood Stool for White Cells Impressions: Abdomen/Pelvis CT 01/26/18 07:06 IMPRESSION: Splenic flexure, descending, and sigmoid colitis, infectious or inflammatory bowel disease favored over ischemic. Assessment & Plan - Time Time Spent with patient: 15-24 minutes - Plan Summary Plan Summary: Resolving colitis/sepsis Will sign off.
[2018-01-27] MEDS: LEVOFLOXACIN 750 MG/D5W RTU 750 MG/150 ML RTUPB IV SCH (10:30)
[2018-01-27] MEDS: ENOXAPARIN SODIUM INJ 40 MG/0.4 ML DISP.SYRIN SUBCUT SCH (10:31)
--- NOTE | 2018-01-27 10:31 | PDOC PROGRESS REPORT ---
Subjective Progress Note for:: 01/27/18 Subjective:: NANI DONOHUE is a 37 year old female no significant past medical history presenting to ED complaining of abdominal pain. Said that the day after she started having severe nausea and vomiting associated with fever and chills. Nausea vomiting resolved however this morning she woke up with severe left-sided abdominal pain. She also had p.o. intolerance and noticed that her urine output was decreasing and urine was turning dark. She said that the cause of her nausea vomiting may have been the food that she had at the [place]. Denies any sick contacts. She denies any history of chronic persistent diarrhea, weight loss, melena, hematochezia skin changes or any rashes or any weight changes. Denies having any personal or family history of inflammatory bowel disease 01/27/2018. No acute events overnight. Patient has had one episode of nonbloody diarrhea and her abdominal pain has been improving now mainly focused on the left lower quadrant. Has not had any nausea or vomiting and she is p.o. tolerant. There is any fever, chills, chest pain, shortness of breath or any urinary symptoms. Reason For Visit: COLITIS,SIRS Physical Exam Vital Signs: Temp Pulse Resp BP Pulse Ox 99.1 F 94 16 90/51 L 100 01/27/18 07:58 01/27/18 07:58 01/27/18 07:58 01/27/18 07:58 01/27/18 07:58 Intake & Output 01/26/18 01/27/18 01/28/18 06:59 06:59 06:59 Intake Total 4040 Output Total 1200 Balance 2840 Weight 67 kg General appearance: PRESENT: no acute distress, well-developed, well-nourished Respiratory exam: PRESENT: clear to auscultation robert. ABSENT: rales, rhonchi, wheezes Cardiovascular exam: PRESENT: RRR. ABSENT: diastolic murmur, rubs, systolic murmur GI/Abdominal exam: PRESENT: guarding, normal bowel sounds, tenderness - Left lower quadrant Results Laboratory Results: 01/27/18 04:58 01/27/18 04:58 01/26/18 01/27/18 01/27/18 12:28 02:52 02:52 WBC RBC Hgb Hct MCV MCH MCHC RDW Plt Count Seg Neutrophils % Lymphocytes % Monocytes % Eosinophils % Basophils % Absolute Neutrophils Absolute Lymphocytes Absolute Monocytes Absolute Eosinophils Absolute Basophils Sodium Potassium Chloride Carbon Dioxide Anion Gap BUN Creatinine Est GFR ( Amer) Est GFR (Non-Af Amer) Glucose Calcium Magnesium Total Bilirubin AST ALT Alkaline Phosphatase C-Reactive Protein 171.0 H Total Protein Albumin Stool Occult Blood POSITIVE Stool for White Cells MANY H 01/27/18 01/27/18 04:58 04:58 WBC 3.5 L RBC 3.31 L Hgb 9.9 L D Hct 28.7 L MCV 87 MCH 30.1 MCHC 34.7 RDW 13.2 Plt Count 177 Seg Neutrophils % 59.0 Lymphocytes % 24.3 Monocytes % 15.7 H Eosinophils % 0.7 Basophils % 0.3 Absolute Neutrophils 2.1 Absolute Lymphocytes 0.8 Absolute Monocytes 0.5 Absolute Eosinophils 0.0 Absolute Basophils 0.0 Sodium 141.7 Potassium 3.5 L Chloride 112 H Carbon Dioxide 18 L Anion Gap 12 BUN 6 L Creatinine 0.58 Est GFR ( Amer) > 60 Est GFR (Non-Af Amer) > 60 Glucose 86 Calcium 7.2 L Magnesium 1.8 Total Bilirubin 0.6 AST 9 L ALT 15 Alkaline Phosphatase 51 C-Reactive Protein Total Protein 4.9 L Albumin 2.4 L Stool Occult Blood Stool for White Cells Impressions: Abdomen/Pelvis CT 01/26/18 07:06 IMPRESSION: Splenic flexure, descending, and sigmoid colitis, infectious or inflammatory bowel disease favored over ischemic. Assessment & Plan - Diagnosis (1) Colitis Is this a current diagnosis for this admission?: Yes Plan: Likely inflammatory. Stool was positive for white blood cells and occult blood. Ova parasite, Gram stain and culture pending. Empiric antibiotics. Volume resuscitation. Electrolyte repletion. Surgery has signed off at this point. Will reconsult if necessary. (2) Nausea & vomiting Is this a current diagnosis for this admission?: Yes Plan: Due to problem #1. Continue antiemetics. Continue treatment for underlying cause. (3) Volume depletion Is this a current diagnosis for this admission?: Yes Plan: Due to problem #1. Aggressive volume resuscitation guided by volume status and vitals. (4) Septic shock Is this a current diagnosis for this admission?: Yes Plan: Likely due to colitis. Blood pressure improving but not optimal. Volume resuscitation guided by volume status and vitals. IMCU admission. Broad-spectrum antibiotics. Stool workup for infectious causes. Blood culture. (5) Anemia Is this a current diagnosis for this admission?: Yes Plan: Likely hemodilution. Stool occult is positive which could likely be due to infectious diarrhea or inflammatory bowel disease. H&H transfuse as actively bleeding, less than 7 or symptomatic. Please consult GI if possible when patient's colitis is under control for evaluation of possible inflammatory bowel disease.
--- NOTE | 2018-01-27 15:50 | RADIOLOGY REPORT (SQ) ---
EXAM DESCRIPTION: PICC INSERTION; FLUORO/CV PLACEMENT; U/S GUIDE FOR VASCULAR ACCESS COMPLETED DATE/TIME: 01/27/2018 3:41 pm REASON FOR STUDY: no IV; IV ACCESS COMPARISON: None. FLUOROSCOPY TIME: 1 minutes 22 seconds 2 digital fluoro chest images, 1 ultrasound imagesaved to PACS. TECHNIQUE: Fluoroscopic and ultrasound guided PICC placement. LIMITATIONS: None. PROCEDURE: After written consent and assessment were obtained, the patient was brought into the fluo roscopy room and placed supine on the table. Ultrasound evaluation of potential access sites were per formed. After successfully identifying a patent left basilic vein, the left arm was prepped and drape d in a sterile fashion along with the ultrasound probe. The entry site was anesthetized with 1% lidoc xu. A 21 gauge 7 cm needle was advanced through the skin and into the basilic vein under live ultra sound guidance. An ultrasound image was saved to PACS confirming access site. A .018 guide wire was then inserted through the needle and into the venous system. The needle was then removed and an 11 b lade scalpel was used to make a 1cm skin incision. A 5 fr peel-away sheath was advanced over the wir e and into the venous system. A measurement was then made using the existing wire and live fluoroscop ic guidance. The wire was then removed and trimmed. The PICC was advanced through the peel-away sheat h and into the venous system. The peel-away sheath was removed and the catheter was adhered to the pa tients arm with a stat lock. The catheter was then aspirated and flushed and a sterile bandage was pl aced over the access site. A fluoroscopic spot image was saved to PACS confirming the catheter tip w ithin the superior vena cava. IMPRESSION: SUCCESSFUL PLACEMENT OF A 5 FR DUAL LUMEN 43 CM PICC IN THE LEFT BASILIC VEIN. COMMENT: Patient medication list reviewed: Yes- Quality ID# 130:Eligible professional attests to doc umenting in the medical record they obtained, updated, or reviewed the patient's current medications. . Quality ID 145: Final reports for procedures using fluoroscopy that document radiation exposure yasmin socorro, or exposure time and number of fluorographic images (if radiation exposure indices are not avail able) Quality ID #76: The patient was prepped and draped using maximum sterile barrier technique including cap, mask, sterile gown, sterile gloves, a large sterile sheet, hand hygiene, and 2% Chlorhexidine fo r cutaneous antisepsis. When ultrasound is used, sterile ultrasound techniques are followed requiring sterile gel and sterile probes. TECHNICAL DOCUMENTATION: JOB ID: [id number]- All Rights Reserved rev-07/19 Reading location - IP/workstation name: [facility]
[2018-01-27] MEDS ORDERED: NORMAL SALINE 10 ML SDV (AFTER EACH USE) IV PRN (22:31)
[2018-01-28] MEDS: NORMAL SALINE 1000 ML 1,000 ML IV PRN ×3 (03:55→22:16)
[2018-01-28] MEDS: METRONIDAZOLE RTU 500 MG/NS 100 ML IV SCH ×3 (05:36→22:15)
[2018-01-28] MEDS: LANSOPRAZOLE 30 MG TAB.RAP.DR PO SCH ×2 (05:36→17:04)
[2018-01-28] MEDS: ONDANSETRON HCL INJ/PF 4 MG/2 ML SDV IV PRN ×3 (06:23→17:05)
[2018-01-28 06:29] LABS: ABSOLUTE LYMPHOCYTES (AUTO) 1.4 10^3/uL (0.5-4.7); ABSOLUTE MONOCYTES (AUTO) 0.6 10^3/uL (0.1-1.4); BASOPHILS % (AUTO) 0.2 % (0-2); EOSINOPHILS % (AUTO) 0.9 % (0-6); HEMATOCRIT 26.2 % (36.0-47.0); HEMOGLOBIN 9.3 g/dL (12.0-15.5); LYMPHOCYTES % (AUTO) 34.6 % (13-45); MEAN CORPUSCULAR HEMOGLOBIN 30.7 pg (27.0-33.4); MEAN CORPUSCULAR HGB CONC 35.4 g/dL (32.0-36.0); MEAN CORPUSCULAR VOLUME 87 fl (80-97); MONOCYTES % (AUTO) 14.3 % (3-13); PLATELET COUNT 230 10^3/uL (150-450); RED BLOOD COUNT 3.02 10^6/uL (3.72-5.28); RED CELL DISTRIBUTION WIDTH 12.8 % (11.5-14.0); TOTAL CELLS COUNTED % (AUTO) 100 %; WHITE BLOOD COUNT 3.9 10^3/uL (4.0-10.5)
[2018-01-28 07:11] LABS: ALANINE AMINOTRANSFERASE 23 U/L (9-52); ALBUMIN 2.3 g/dL (3.5-5.0); ALKALINE PHOSPHATASE 61 U/L (38-126); ANION GAP 9 (5-19); ASPARTATE AMINO TRANSFERASE 12 U/L (14-36); BILIRUBIN,DIRECT 0.3 mg/dL (0.0-0.4); BILIRUBIN,TOTAL 0.4 mg/dL (0.2-1.3); BLOOD UREA NITROGEN 3 mg/dL (7-20); CALCIUM 7.8 mg/dL (8.4-10.2); CARBON DIOXIDE 20 mmol/L (22-30); CHLORIDE 112 mmol/L (98-107); GLUCOSE 94 mg/dL (75-110); POTASSIUM 3.5 mmol/L (3.6-5.0); SODIUM 140.7 mmol/L (137-145); TOTAL PROTEIN 4.7 g/dL (6.3-8.2)
[2018-01-28] MEDS: LEVOFLOXACIN 750 MG/D5W RTU 750 MG/150 ML RTUPB IV SCH (10:17)
[2018-01-28] MEDS: NORMAL SALINE 10 ML SDV (SCHEDULED) IV SCH ×2 (10:18→22:13)
[2018-01-28] MEDS: ENOXAPARIN SODIUM INJ 40 MG/0.4 ML DISP.SYRIN SUBCUT SCH (11:02)
--- NOTE | 2018-01-28 13:25 | PDOC PROGRESS REPORT ---
Subjective Progress Note for:: 01/28/18 Subjective:: 01/28/2018 7-year-old female with no significant thickened past medical history came to the emergency room 2 days ago with complaints of abdominal pain. In the treatment for colitis. Is able to tolerate the oral feeds. Vomited twice today. One loose stool today. Desired to go home. Reason For Visit: COLITIS,SEPTIC SHOCK, VOLUME DEPLETION Physical Exam Vital Signs: Temp Pulse Resp BP Pulse Ox 97.8 F 79 16 115/75 99 01/28/18 12:05 01/28/18 12:05 01/28/18 12:05 01/28/18 12:05 01/28/18 12:05 Intake & Output 01/27/18 01/28/18 01/29/18 06:59 06:59 06:59 Intake Total 1395 1550 Output Total 425 Balance 970 1550 Weight 67.5 kg General appearance: PRESENT: no acute distress Head exam: PRESENT: atraumatic Eye exam: PRESENT: PERRLA Mouth exam: PRESENT: moist Neck exam: ABSENT: carotid bruit, JVD, lymphadenopathy, thyromegaly Respiratory exam: PRESENT: clear to auscultation robert. ABSENT: rales, rhonchi, wheezes Cardiovascular exam: PRESENT: RRR. ABSENT: diastolic murmur, rubs, systolic murmur GI/Abdominal exam: PRESENT: normal bowel sounds, soft. ABSENT: distended, guarding, mass, organolmegaly, rebound, tenderness Neurological exam: PRESENT: alert, awake, oriented to person, oriented to place , oriented to time, oriented to situation, CN II-XII grossly intact. ABSENT: motor sensory deficit Psychiatric exam: PRESENT: appropriate affect, normal mood. ABSENT: homicidal ideation, suicidal ideation Results Laboratory Results: 01/28/18 05:41 01/28/18 05:41 01/28/18 01/28/18 05:41 05:41 WBC 3.9 L RBC 3.02 L Hgb 9.3 L Hct 26.2 L MCV 87 MCH 30.7 MCHC 35.4 RDW 12.8 Plt Count 230 Seg Neutrophils % 50.0 Lymphocytes % 34.6 Monocytes % 14.3 H Eosinophils % 0.9 Basophils % 0.2 Absolute Neutrophils 2.0 Absolute Lymphocytes 1.4 Absolute Monocytes 0.6 Absolute Eosinophils 0.0 Absolute Basophils 0.0 Sodium 140.7 Potassium 3.5 L Chloride 112 H Carbon Dioxide 20 L Anion Gap 9 BUN 3 L Creatinine 0.59 Est GFR ( Amer) > 60 Est GFR (Non-Af Amer) > 60 Glucose 94 Calcium 7.8 L Magnesium 1.9 Total Bilirubin 0.4 AST 12 L ALT 23 Alkaline Phosphatase 61 Total Protein 4.7 L Albumin 2.3 L Impressions: Abdomen/Pelvis CT 01/26/18 07:06 IMPRESSION: Splenic flexure, descending, and sigmoid colitis, infectious or inflammatory bowel disease favored over ischemic. Guidance Fluoroscopy 01/27/18 00:00 IMPRESSION: SUCCESSFUL PLACEMENT OF A 5 FR DUAL LUMEN 43 CM PICC IN THE LEFT BASILIC VEIN. Interventional Vascular Procedure 01/27/18 00:00 IMPRESSION: SUCCESSFUL PLACEMENT OF A 5 FR DUAL LUMEN 43 CM PICC IN THE LEFT BASILIC VEIN. PICC Line Insertion 01/27/18 00:00 IMPRESSION: SUCCESSFUL PLACEMENT OF A 5 FR DUAL LUMEN 43 CM PICC IN THE LEFT BASILIC VEIN. Assessment & Plan - Diagnosis (1) Colitis Is this a current diagnosis for this admission?: Yes Plan: 01/28/2018. Patient was admitted for abdominal pain colitis most likely inflammatory initially stool was positive for WBC and occult blood. Patient is in empiric antibiotics. He is on IV fluids normal saline at 200 cc/h. I am going to plan decrease it to 75cc/hr. cultures are negative. Stool culture is pending. Surgery saw her and sent her off. (2) Nausea & vomiting Is this a current diagnosis for this admission?: Yes Plan: 01/28/2018-patient told me she threw up twice today. She is getting Zofran as needed. Denies any diarrhea. Complaining of occasional nausea. (3) Septic shock Is this a current diagnosis for this admission?: Yes Plan: 01/28/2018. Septic shock is unlikely. Blood cultures are negative. Patient's blood pressure today is 115/75. She is getting IV fluids normal saline at 200 cc/h. Planning to decrease the fluid to 75 cc/hr. - Time Time Spent with patient: 15-24 minutes Medications reviewed and adjusted accordingly: Yes Anticipated discharge: Home
[2018-01-28] MEDS ORDERED: POTASSIUM CHLORIDE 10 MEQ CAPSULE.ER PO ONE (18:00)
[2018-01-29] MEDS: NORMAL SALINE 1000 ML 1,000 ML IV PRN (01:53)
[2018-01-29] MEDS: LANSOPRAZOLE 30 MG TAB.RAP.DR PO SCH (05:23)
[2018-01-29] MEDS: METRONIDAZOLE RTU 500 MG/NS 100 ML IV SCH (05:23)
[2018-01-29] MEDS: ONDANSETRON HCL INJ/PF 4 MG/2 ML SDV IV PRN ×2 (06:52→12:55)
[2018-01-29] MEDS: ENOXAPARIN SODIUM INJ 40 MG/0.4 ML DISP.SYRIN SUBCUT SCH (09:29)
[2018-01-29] MEDS: LEVOFLOXACIN 750 MG/D5W RTU 750 MG/150 ML RTUPB IV SCH (09:31)
[2018-01-29] MEDS: NORMAL SALINE 10 ML SDV (SCHEDULED) IV SCH (09:32)
[2018-01-29] MEDS ORDERED: POTASSIUM CHLORIDE 10 MEQ CAPSULE.ER PO SCH (10:00)
[2018-01-29] MEDS ORDERED: ONDANSETRON HCL 8 MG TABLET PO PRN (12:49)
--- NOTE | 2018-01-29 12:59 | PDOC DISCHARGE SUMMARY ---
General - Admit/Disc Date/PCP Admission Date/Primary Care Provider: 01/27/18 16:05 GEMA SON NP Discharge Date: 03/31/17 - Discharge Diagnosis (1) Colitis Is this a current diagnosis for this admission?: Yes Summary: 01/29/2018 this 37-year-old female admitted with abdominal pain on 01/27/2018 CT abdomen and pelvis indicates colitis she was started on IV antibiotics she is was n.p.o. she was on IV fluids no complications while she was in the hospital the cultures are negative and stool culture showed few WBC. No vomiting today no abdominal pain today no diarrhea today she is feeling well to go home today. (2) Nausea & vomiting Is this a current diagnosis for this admission?: Yes Summary: 01/29/2018 nausea and vomiting resolved. (3) Septic shock Is this a current diagnosis for this admission?: Yes Summary: 03/31/2017 patient blood pressure is back to normal afebrile asymptomatic - Additional Information Discharge Diet: As Tolerated Discharge Activity: Activity As Tolerated Prescriptions: Levofloxacin [Levaquin 500 mg Tablet] 500 mg PO DAILY 5 Days tablet Home Medications: Levofloxacin [Levaquin 500 mg Tablet] 500 mg PO DAILY 5 Days tablet 01/29/18 Ondansetron HCl/Pf [Zofran Inj/Pf 4 mg/2 ml Sdv] 4 mg IV Q4HP PRN vial History of Present Illness History of Present Illness: NANI DONOHUE is a 37 year old female 37-year-old female admitted on 01/27/2018 with abdominal pain nausea vomiting's constipation and the blood cultures was done in the ER which was negative she was placed in the medical floor started on IV fluids IV antibiotics and she was kept n.p.o. and blood cultures came back negative and she was back to normal today. Physical Exam Vital Signs: Temp Pulse Resp BP Pulse Ox 97.5 F 65 16 128/83 H 100 01/29/18 12:19 01/29/18 12:19 01/29/18 12:19 01/29/18 12:19 01/29/18 12:19 Intake & Output 01/28/18 01/29/18 01/30/18 06:59 06:59 06:59 Intake Total 1395 3174 150 Output Total 425 Balance 970 3174 150 Weight 67.5 kg 67.2 kg General appearance: PRESENT: no acute distress Head exam: PRESENT: atraumatic Eye exam: PRESENT: PERRLA Neck exam: ABSENT: carotid bruit, JVD, lymphadenopathy, thyromegaly Respiratory exam: PRESENT: clear to auscultation robert. ABSENT: rales, rhonchi, wheezes GI/Abdominal exam: PRESENT: normal bowel sounds, soft. ABSENT: distended, guarding, mass, organolmegaly, rebound, tenderness Neurological exam: PRESENT: alert, awake, oriented to person, oriented to place , oriented to time, oriented to situation, CN II-XII grossly intact. ABSENT: motor sensory deficit Psychiatric exam: PRESENT: appropriate affect, normal mood. ABSENT: homicidal ideation, suicidal ideation Results Laboratory Results: 01/28/18 05:41 01/28/18 05:41 Impressions: Abdomen/Pelvis CT 01/26/18 07:06 IMPRESSION: Splenic flexure, descending, and sigmoid colitis, infectious or inflammatory bowel disease favored over ischemic. Guidance Fluoroscopy 01/27/18 00:00 IMPRESSION: SUCCESSFUL PLACEMENT OF A 5 FR DUAL LUMEN 43 CM PICC IN THE LEFT BASILIC VEIN. Interventional Vascular Procedure 01/27/18 00:00 IMPRESSION: SUCCESSFUL PLACEMENT OF A 5 FR DUAL LUMEN 43 CM PICC IN THE LEFT BASILIC VEIN. PICC Line Insertion 01/27/18 00:00 IMPRESSION: SUCCESSFUL PLACEMENT OF A 5 FR DUAL LUMEN 43 CM PICC IN THE LEFT BASILIC VEIN. Qualifiers - * PATIENT BEING DISCHARGED WITH ANY OF THE FOLLOWING DIAGNOSIS: No VTE patient discharged on overlapping Therapy?: Yes
[2018-01-29 13:08] VITALS: BP 123/83
[2018-01-30] MEDS ORDERED: LEVOFLOXACIN 500 MG TABLET PO SCH (10:00)
== END 2018-01-29 14:56 | disposition home or self-care (01) | DRG 391 ==
LOC: ER 05:10 → EH 11:25 → INTOOBSV 11:25 → 3W 13:06 → OBSVTOIN 01-27 16:05
PROVIDERS: ADMIT Internal Medicine; ATTEND Internal Medicine
PROC: 02HV33Z Insertion of Infusion Device into Superior Vena Cava, Percutaneous Approach (ICD-10-PCS; principal; 2018-01-27)
PROC: B5181ZA Fluoroscopy of Superior Vena Cava using Low Osmolar Contrast, Guidance (ICD-10-PCS; 2018-01-27)
PROC: B548ZZA Ultrasonography of Superior Vena Cava, Guidance (ICD-10-PCS; 2018-01-27)
DX: K52.9 Noninfective gastroenteritis and colitis, unspecified (principal); R65.21 Severe sepsis with septic shock; R11.2 Nausea with vomiting, unspecified; E86.9 Volume depletion, unspecified; Z88.8 Allergy status to other drugs, medicaments and biological substances
CPT/HCPCS: 36415; 36569; 74177; 76937; 77001; 80053; 81001; 81025; 82272; 83605; 83690; 83735; 85025; 85652; 86140; 87040; 87045; 87205; 87493; 89055; 96361; 96374; 96375; 99291; C1769; G0378; J0610; J1642; J1885; J1956; J2405; J3010; J3490; J7030